=== PATIENT | female | born 1945 | race Caucasian/White ===

== ENCOUNTER → 2017-08-26 15:21 | Outpatient (CLI) | payer MEDICARE, OTHER, SELFPAY ==
--- NOTE | 2017-08-26 15:29 | XR_ITS ---
XR hand LT min 3V Ordering Physician: RILEY Diego Patient Age: 71 years: Female HISTORY: ITS.REASON: INJURY OF LT 3RD DIGIT Pain third digit injured one month ago TECHNIQUE: 4 views left hand attention third finger PA and lateral COMPARISON :None recent. 2008 images of right fingers FINDINGS Fracture at the base of distal phalanx third finger. . This fracture passes obliquely from the mid articular cortex to the ulnar margin of the proximal metaphysis of a PA film. It appears to be a corner. The fracture yields a small fragment from the dorsal, ulnar corner here at the base of the distal phalanx on the oblique and lateral views... This yields slight dorsal flaring here at the dorsal corner on the lateral film. This Fracture line measures measures nearly 1 mm in some areas. Some of this may reflect mild resorption, along the fracture zonesince the injury 1 month ago. There is Likely some minor irregularity at the articular surface as well. There is a splint in place Mild arthritic changes and narrowing are seen at the other DIP joints. Some scant arthritic changes at the PIP joints. MCP joints intact. IMPRESSION. Fracture at the base of the distal phalanx left third finger involves the articular surface. . Resulting corner fracture fragment from the ulnar/ dorsal corner of distal phalanx
== END ==
PROVIDERS: PCP Physician Assistant; Visit Provider Physician Assistant
DX: S69.92XA Unspecified injury of left wrist, hand and finger(s), initial encounter (principal)
CPT/HCPCS: 73130

== ENCOUNTER → 2017-12-06 09:47 | Outpatient (POV) | payer MEDICARE, OTHER, SELFPAY | PROVIDERS: Family Provider Family Medicine; PCP Physician Assistant; Visit Provider Nurse Practitioner Acute Care | DX: Z00.00 Encounter for general adult medical examination without abnormal findings (principal) ==

== ENCOUNTER → 2017-12-27 15:03 | Outpatient (CLI) | payer MEDICARE, OTHER, SELFPAY ==
--- NOTE | 2017-12-27 15:06 | US_ITS ---
US soft tissue head and neck CLINICAL INDICATION: ITS.REASON: RT SIDE NECK NODULE ORDERING PHYSICIAN: Ira Kay MD PATIENT AGE: 72 years Comparison: None FINDINGS: The submandibular and parotid glands have an unremarkable appearance. There are scattered small nodes within the right neck in the area of patient's reported pain with the largest of these nodes measuring 13 x 4 mm. No fluid collections are evident. Smaller nodes are present on the left measuring 1 x 0 point centimeters IMPRESSION: Small cervical lymph nodes otherwise negative ultrasound of the neck
== END ==
PROVIDERS: Family Provider Family Medicine; PCP Physician Assistant; Visit Provider Emergency Medicine
DX: R22.1 Localized swelling, mass and lump, neck (principal)
CPT/HCPCS: 76536

== ENCOUNTER → 2018-02-23 12:39 | Outpatient (CLI) | payer MEDICARE, OTHER, SELFPAY | PROVIDERS: PCP Nurse Practitioner Family; Visit Provider Nurse Practitioner Family | DX: I10 Essential (primary) hypertension (principal) | CPT/HCPCS: 93005 ==

== ENCOUNTER → 2018-03-14 08:29 | Outpatient (POV) | payer MEDICARE, OTHER, SELFPAY | PROVIDERS: Visit Provider Nurse Practitioner Acute Care | DX: Z00.00 Encounter for general adult medical examination without abnormal findings (principal) ==

== ENCOUNTER → 2018-06-16 11:58 | Outpatient (CLI) | payer MEDICARE, OTHER, SELFPAY ==
--- NOTE | 2018-06-16 12:11 | XR_ITS ---
XR hip RT 2-3V w/pelvis HISTORY: ITS.REASON: RT HIP PAIN ORDERING PHYSICIAN: Margarita Wise PATIENT AGE: 72 years COMPARISON: None FINDINGS: No fracture or dislocation is evident. There is a well-circumscribed rounded calcific density superior to the femoral neck measuring 8 mm an additional calcific density just superior to the greater trochanter. No significant arthritic changes are evident. There is cortical thickening involving the proximal shaft of the right femur with abnormal lateral angulation of the distal aspect of the femur at this area suggesting an old fracture. There are a cluster of very fine metallic densities noted lateral to the femoral head within the soft tissues nonspecific. There is some sclerosis along the central aspect of the right femoral neck laterally. There is an old left inferior ramus fracture suspected IMPRESSION: 1. No acute findings. 2. Old proximal femur fracture. 3. Sclerosis of the right femoral neck laterally possibly due to an old injury with other nonacute findings as described above
--- NOTE | 2018-06-16 12:11 | XR_ITS ---
EXAM: XR lumbar spine min 4V HISTORY: ITS.REASON: BACK PAIN ORDERING PHYSICIAN: Margarita Wise PATIENT AGE: 72 years COMPARISON: 9 FINDINGS: Mild lumbar scoliosis convex right. There is multilevel degenerative disc disease at L2-L3 L3-L4 and L4-L5. No fracture or dislocation. Facet arthritic changes are present with facet hypertrophy on the right at L4-L5. IMPRESSION: Scoliosis with degenerative disc disease and facet arthritic change
== END ==
PROVIDERS: PCP Nurse Practitioner Family; Visit Provider Nurse Practitioner Family
DX: M25.551 Pain in right hip (principal); M54.9 Dorsalgia, unspecified
CPT/HCPCS: 72110; 73502

== ENCOUNTER → 2018-06-22 16:40 | Outpatient (CLI) | payer MEDICARE, OTHER, SELFPAY ==
[2018-06-22 17:37] LABS: Blood Urea Nitrogen 24 mg/dL (7-18); Creatinine,Serum 1.12 mg/dL (0.55-1.02); Estimated Glomerular Filt Rate 48 ml/min (>60); GFR (African American) 58 ML/MIN (>60)
== END ==
PROVIDERS: Visit Provider Nurse Practitioner Family
DX: M51.36 Other intervertebral disc degeneration, lumbar region (principal)
CPT/HCPCS: 36415; 82565; 84520

== ENCOUNTER → 2018-06-23 13:41 | Outpatient (CLI) | payer MEDICARE, OTHER, SELFPAY ==
--- NOTE | 2018-06-23 13:44 | MR_ITS ---
MR lumbar spine wo/w con, MR 3-d myelogram/MRCP HISTORY: LBP and RT hip pain X6wks. LT hip pain X2wks. No trauma. Degenerative disc disease ITS.REASON: DDD ORDERING PHYSICIAN: Margarita Wise APRN PATIENT AGE: 72 years Comparison: X-RAY 06-16-18 TECHNIQUE: Standard multiplanar multiecho sequences are performed without and with gadolinium enhancement . 3-D MIP and myelographic images are also rendered and reviewed FINDINGS: There is normal alignment. The spinal cord ends at the T12-L1 level. Is mild lumbar scoliosis convex right measuring 17 degrees. T11-T12: Mild degenerative disc disease. T12-L1: Unremarkable. L1-L2: Minimal concentric bulging disc with mild facet and ligamentum flavum hypertrophy with mild bilateral lateral recess and foraminal narrowing. L2-L3: Degenerative disc disease with bulging disc with moderate facet and ligamentum flavum hypertrophy with severe left lateral recess and foraminal narrowing and moderate right lateral recess and foraminal narrowing. Borderline canal stenosis L3-L4: Degenerative disc disease with bulging disc with facet and ligamentum flavum hypertrophy with moderate to severe bilateral lateral recess and foraminal narrowing. There is minimal central disc protrusion slightly eccentric to the right and into the right lateral recess narrowing. There is 9 mm right lateral translation of L3 on L4. There is transverse narrowing of the canal is level with borderline canal stenosis. L4-5: Degenerative disc disease with bulging disc with moderate to severe facet and ligamentum flavum hypertrophy with severe right lateral recess and foraminal narrowing and moderate to severe left lateral recess and foraminal narrowing. L5-S1: Unremarkable. No enhancing lesions are evident. No extruded herniated disc. IMPRESSION: 1. Multilevel lumbar spondylosis with degenerative disc disease, scoliosis, bulging disc, severe facet ligamentum flavum hypertrophy with lateral recess and foraminal narrowing at multiple levels. There is borderline canal stenosis at multiple levels. Please see above for detailed description at each level 2. No extruded herniated disc evident.
--- NOTE | 2018-06-23 14:48 | HMH.ITSHM ---
Current Home Medications as stated by this patient Kanika Arnold or business services representative. []METAMUCIL PRODESTERONE SAVELLA SIMVASTATIN GABAPENTIN LANSOPRAZOLE MULT VITAMIN COQ10 D3 DICYCLOMINE FLUOCINONIDE TRIMCINOLONE FLUTICASONE TRIAMATRINE CARVEDILOL
== END ==
PROVIDERS: PCP Nurse Practitioner Family; Visit Provider Nurse Practitioner Family
DX: M51.36 Other intervertebral disc degeneration, lumbar region (principal)
CPT/HCPCS: 72158; 76376; A9576

== ENCOUNTER → 2019-01-19 15:26 | Outpatient (CLI) | payer MEDICARE, OTHER, SELFPAY ==
--- NOTE | 2019-01-19 15:29 | MM_ITS ---
PROCEDURE: MM DIG SCREENING MAMM BI W/CAD CLINICAL INDICATION: SCREENING There is no personal or family history of breast cancer. There has been previous breast reduction surgery bilaterally. COMPARISON: [facility] DIG MAMM-SCREEN YAKOV from 05/13/2015 DMDXUAVL DIG MAMM-DX UNI ADD VIEWS-LT from 05/28/2015 [facility] DIG MAMM-SCREEN YAKOV W/CAD from 05/29/2016 TECHNIQUE: Standard CC and MLO images were obtained. R2 CAD reviewed. FINDINGS: There is a diffusely dense and heterogenic parenchymal pattern somewhat lessening the sensitivity of mammography. The findings are fairly symmetrical bilaterally. There are couple of benign-appearing microcalcifications in each breast. There is no new or suspicious lesion in either breast and no suspicious microcalcifications. IMPRESSION: Stable dense heterogenic parenchymal pattern with no suspicious lesions seen BI-RAD Category: 2 Benign Finding(s) FOLLOW-UP: 1YR 1 Year Follow-up (A letter has been sent to the patient regarding results of the study.) Dictated by: Dr. Jose Rodríguez MD 01/22/2019 08:[address] Jose Rodríguez MD in [place] 01/22/2019 08:22
== END ==
PROVIDERS: PCP Nurse Practitioner Family; Visit Provider Nurse Practitioner Women's Health
DX: Z12.31 Encounter for screening mammogram for malignant neoplasm of breast (principal)
CPT/HCPCS: 77067

== ENCOUNTER → 2019-04-03 09:50 | Outpatient (POV) | payer MEDICARE, OTHER, SELFPAY | PROVIDERS: Visit Provider Nurse Practitioner Family | DX: Z00.00 Encounter for general adult medical examination without abnormal findings (principal) ==